=== PATIENT | female | born 1960 | race Caucasian/White ===

== ENCOUNTER → 2017-05-17 | Outpatient (CLI) | payer BC ==
[~2017-05-17] MED LIST: CITA40TA5 PO; ELET40TA PO; GADOBUTROL 7.5 MMOL/7.5 ML VIAL IV ONE; LEVO88TA4 PO
--- NOTE | 2017-05-17 13:24 | KCIC ---
EXAM: Brain MRI with and without contrast. HISTORY: Migraines. TECHNIQUE: Multiplanar, multisequence magnetic resonance imaging of the brain was performed prior to and following the administration of 7 cc Gadavist intravenous contrast. COMPARISON: None. FINDINGS: There is no restricted diffusion to suggest acute or subacute infarction. There is no susceptibility effect to suggest hemorrhage. There is no mass effect or midline shift. There is no hydrocephalus. There are scattered focal areas of T2/FLAIR hyperintensity throughout the cerebral white matter and there is patchy T2/FLAIR hyperintensity within the ira, a nonspecific finding. There is a tiny focus of enhancement within the left cerebellum on axial images which is likely due to averaging of a penetrating vessel. No suspicious enhancing lesion is seen. The orbits, paranasal sinuses and mastoid air cells are unremarkable. There are normal flow voids within the cerebral vessels. IMPRESSION: 1. No acute intracranial finding. 2. Scattered areas of signal change throughout the cerebral white matter and within the ira, a nonspecific finding. Given the age of the patient and lesion distribution and configuration, this likely due to chronic small vessel disease. The possibility of superimposed foci of signal change due to chronic migraine headaches can also be considered given the patient history. The age of the patient and imaging appearance does not favor lesions due to demyelinating disease. Electronically signed by: Alicia Yañez MD (05/17/2017 1:21 PM) [facility]
== END | disposition home or self-care (01) ==
LOC: KCIC MRI 12:16
PROVIDERS: ATTEND Nurse Practitioner Family
DX: G43.909 Migraine, unspecified, not intractable, without status migrainosus (principal); G37.9 Demyelinating disease of central nervous system, unspecified; R90.82 White matter disease, unspecified
CPT/HCPCS: 70553; A9585